=== PATIENT | female | born 1995 | race African-American/Black ===

== ENCOUNTER 2024-03-01 10:39 | Emergency (ER) | payer MEDICAID ==
[~2024-03-01] VITALS: Ht 175.3 cm; Wt 85.0 kg
[2024-03-01 10:44] VITALS: O2SAT 100
[2024-03-01] MEDS ORDERED: PHEN51GE9 TP (11:35)
[2024-03-01] MEDS ORDERED: HYDR453.3 TP (11:35)
[2024-03-01 11:45] VITALS: BP 118/78; PULSE 89; RESP 14; TEMP 98.3
== END 2024-03-01 12:04 | disposition home or self-care (01) ==
LOC: ER 10:43
DX: K64.8 Other hemorrhoids (principal)
CPT/HCPCS: 99282